=== PATIENT | male | born 1960 | race Native Hawaiian/Other Pacific Islander ===

== ENCOUNTER 2017-04-07 17:34 | Emergency (ER) | payer BC ==
[~2017-04-07] VITALS: Ht 180.3 cm; Wt 101.6 kg
[2017-04-07 19:14] LABS: PLATELET COUNT 190 K/uL (142-355)
[2017-04-07 19:22] LABS: POTASSIUM 3.9 mmol/L (3.6-5.2); SODIUM 137 mmol/L (136-145)
[2017-04-07 20:15] VITALS: BP 142/77; TEMP 98.6
== END 2017-04-07 20:17 | disposition home or self-care (01) ==
LOC: ED 17:34
PROVIDERS: Emergency Medicine
DX: R22.41 Localized swelling, mass and lump, right lower limb (principal); Z98.890 Other specified postprocedural states
CPT/HCPCS: 36415; 80053; 83605; 85027; 85379; 99283